=== PATIENT | male | born 1995 | race Caucasian/White ===

== ENCOUNTER 2021-10-13 21:15 | Emergency (ER) | payer OTHER, SELFPAY ==
--- NOTE | ~2021-10-13 | CT_ITS ---
EXAMINATION: CT BRAIN W/O DATE: 10/13/2021 22:29 INDICATION: Struck in head with elbow playing football TECHNIQUE: Computed tomography (CT) of the head was performed without intravenous contrast. The dose- length product was 605.33 mGy-cm. Automated exposure control and iterative reconstruction technique w ere employed. COMPARISON: No prior studies for comparison. FINDINGS: Normal brain parenchymal volume for age. Normal bone-white differentiation. No acute intrac ranial hemorrhage, infarction, mass or mass effect. No ventriculomegaly or midline shift. Midline sagittal images demonstrate a normal corpus callosum, c raniovertebral junction and sella turcica. Basilar cisterns are patent. Paranasal sinuses and mastoids are pneumatized. No depressed skull fractures. IMPRESSION: 1. No acute intracranial abnormality. Reviewed, dictated and finalized at location A.
--- NOTE | ~2021-10-13 | XR_ITS ---
XR knee RT min 4V 10/13/2021 22:25 INDICATION: Right knee pain PROCEDURE: 4 views right knee COMPARISON: No prior studies for comparison. FINDINGS: Fracture, dislocation or subluxation is not identified. No significant joint effusion. The soft tissues appear within normal limits. No foreign bodies are identified. IMPRESSION: 1: NO ACUTE BONE OR JOINT ABNORMALITY IDENTIFIED. Reviewed, dictated and finalized at location A.
[2021-10-13 21:20] VITALS: BP 151/81; PULSE 45; RESP 18; TEMP 36.2; O2SAT 99
--- NOTE | 2021-10-13 22:18 | ED.LOWEXIN ---
HPI - Extremity Injury (Lower) General Chief Complaint: Extremity Injury, Lower Stated Complaint: right knee pain, head trauma Time Seen by Provider: 10/13/21 21:37 Source: patient Mode of arrival: ambulatory Limitations: no limitations History of Present Illness HPI Narrative: This is a 26 year old male that presents to the ER after an injury today at flag football for evaluation. Reports he was hit by another player on the outside of his right knee. Reports he has had swelling and pain to the area. Pain is especially with ambulation. Also reports he was hit in the head. He did not lose consciousness. Although family member reports he was confused for about 10 minutes. Patient denies vision changes, vomiting, numbness, or weakness. Related Data Home Medications Medication Instructions Recorded Confirmed No Home Medications 10/13/21 10/13/21 Allergies Allergy/AdvReac Type Severity Reaction Status Date / Time No Known Allergies Allergy Verified 10/13/21 21:21 Review of Systems Review of Systems: CONSTITUTIONAL: Denies fever EYES: Denies visual changes GASTROINTESTINAL: Denies vomiting MUSCULOSKELETAL: Reports joint pain, and myalgia. NEUROLOGIC: Denies numbness, or weakness. All systems reviewed & are unremarkable except as noted in HPI and below PMFSH Past Medical History Medical History (Updated 10/13/21 @ 23:37 by Yary Cordoba PA-C) No active medical problems Social History Social History (Updated 10/13/21 @ 22:21 by Yary Cordoba PA-C) Smoking status: Never smoker Exam Narrative: GENERAL: Well-appearing, well-nourished, and in no acute distress. HEAD: Normocephalic, atraumatic. EYES: PERRLA and EOMI. ENT: Nares clear, no rhinorrhea or epistaxis. Mucous membranes moist. Oropharynx without tonsillar hypertrophy exudate or other lesions. Bilateral TMs pearly bone non-bulging NECK: Supple. No adenopathy or masses. No midline cervical spine tenderness CHEST: Clear to auscultation. No respiratory distress. No wheezes rales or rhonchi HEART: Regular rate and rhythm. No murmur heard. Normal peripheral pulses. EXTREMITIES: Normal range of motion. No edema or obvious deformity. Normal DP pulse SKIN: Warm, dry, no rash. NEURO: No focal deficits. Alert and oriented x3. Cranial nerves II through XII grossly intact PSYCH: Normal mood and affect Course Vital Signs Vital signs: Vital Signs Temperature 97.2 F L 10/13/21 21:20 Pulse Rate 45 L 10/13/21 21:20 Respiratory Rate 18 10/13/21 21:20 Blood Pressure 151/81 H 10/13/21 21:20 Pulse Oximetry 99 10/13/21 21:20 Oxygen Delivery Room Air 10/13/21 21:20 Temperature 97.2 F L 10/13/21 21:20 Pulse Rate 45 L 10/13/21 21:20 Respiratory Rate 18 10/13/21 21:20 Blood Pressure 151/81 H 10/13/21 21:20 Pulse Oximetry 99 10/13/21 21:20 Oxygen Delivery Room Air 10/13/21 21:20 Procedures Orthopedic Splinting/Casting Injury #1: Splinting/Casting Date: 10/13/21 Splinting/Casting Time: 23:40 Side: right Lower Extremity Injury Location: knee Lower Extremity Immobilizer: Boyd wrap Splint: prefabricated Pre-Formed: other (boyd wrap) Pre-Procedure Neuro Vascular Exam: normal Post-Procedure Neuro Vascular Exam: normal Other Orthopedic Equipment: crutches MDM - Extremity Injury (Lower) MDM Narrative Medical decision making narrative: Patient presents to the emergency department for right knee pain and head injury after playing flag football. Patient's vitals are stable. He is neurologically intact. Right knee x-ray without acute osseous abnormalities. CT scan of the brain without concerning findings. Patient was updated on case findings. Placed in Boyd wrap and given crutches. Instructed to rest, ice and take [id number] pain medication as needed. He will be given orthopedics for follow-up. He was instructed on care of concussion as well. He was giv
[2021-10-13 23:48] VITALS: BP 158/92; PULSE 60; RESP 18; O2SAT 98
== END 2021-10-13 23:50 | disposition home or self-care (01) ==
PROVIDERS: Emergency Provider Emergency Medicine
DX: S83.91XA Sprain of unspecified site of right knee, initial encounter (principal); S09.90XA Unspecified injury of head, initial encounter; W51.XXXA Accidental striking against or bumped into by another person, initial encounter; Y93.62 Activity, american flag or touch football
CPT/HCPCS: 70450; 73564; 99284

== ENCOUNTER 2022-01-20 00:38 | Day surgery (SDC) | payer OTHER, SELFPAY ==
[2022-01-17 14:10] VITALS: BMI 22.1
--- NOTE | 2022-01-17 14:19 | PC.NURSE ---
Report to the Outpatient Waiting Room, entrance under the green pavilion located off [facility], at time 0600 on date 01/20/22. OR Time: 0730. - You and your visitor will be asked to self-screen and do not enter if you have any COVID symptoms. - Only one visitor and NO children visitors are allowed at this time. - The patient visitor is requested to leave or wait in car when not with patient due to restrictions. - A mask is required within the hospital. Patients may have clear liquids (water, carbonated beverages, clear teas, apple juice) until 3 hours prior to surgery with a maximum of 20 ounces. - No food from midnight until time of surgery Take the following medications with a SIP of water the morning of surgery: PAIN PILL (IF NEEDED) Medications to discontinue per physician: N/A Date to take last dose: N/A Please no make-up, nail romanian, hairspray, perfume, deodorant, or body powder the day of surgery. No jewelry (including any body piercings) or valuables the day of surgery, leave them at home. Please take a shower or bath the night before, or the morning of, surgery with an antibacterial soap. Wear comfortable, loose fitting clothing. - Jewelry must be removed prior to entering the operating room. Rings and piercings that are not removed may be cut off. - The hospital will not accept responsibility for valuables. - Please leave all valuables, including medications, at home the day of surgery. If you are going home after surgery, a licensed stake driver must drive you home. - NO public transportation without another adult. - We recommend that an adult stay with you for 24 hours following discharge. - We also recommend that you do not drive, make important decision, drink alcoholic beverages, or take any drugs that were not prescribed by your health care provider for at least 24 hours after your discharge time. Follow any additional instructions given to you from your surgeon. If you or anyone in your household have experienced Covid symptoms in the past week, please notify your surgeon or the nurse liaison at the phone number below for possible testing. Telephone instructions given to PT - MAKI DUNHAM and asked if any additional questions and then verbalized understanding. Patient advised to call surgeon office or pre surgery nurse liaison [phone] if any additional questions.
--- NOTE | 2022-01-19 09:35 | P.PNAN_ITS ---
Anes - Initial Pre Proc Eval Procedure: Operation Date: 01/20/22 07:30 Proposed Procedures p Open Reduction Internal Fixation with Syndesmotic Stabilization Right Ankle - Piero Leyva MD Date/Time: 01/19/22 09:35 Surgeon: Piero Leyva MD Pre Op Diagnosis: Right Ankle Fx Patient Data Age: 26 Gender: M Height: 1.8 m Weight: 72 kg Allergies Allergy/AdvReac Type Severity Reaction Status Date / Time No Known Allergies Allergy Verified 01/20/22 06:30 Home Medications Medication Instructions Recorded Confirmed Type hydrocodone 5 mg-acetaminophen 325 1 tablet PO Q4-6H PRN Pain 01/17/22 01/20/22 History mg tablet ibuprofen 200 mg tablet 400 mg PO Q6H PRN Pain 01/17/22 01/20/22 History Patient hx anesthesia problems: none Family hx anesthesia problems: none Results Review: All pre-operative results and documents have been reviewed as part of the pre- operative evaluation. 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 Informed Consent: The patient's anesthetic plan and its attendant risks and benefits were discussed with the patient/family/POA. Questions were solicited and answers provided to the satisfaction of the patient/family/POA.
--- NOTE | 2022-01-19 09:36 | WPDANESPNB ---
Anes - Peripheral Nerve Block Date/Time: 01/19/22 09:36 I have discussed with the patient/family/POA the placement of a peripheral nerve block for post-operative pain management, including associated risks, benefits, complications, and side effects. Alternative methods of post-operative analgesia were detailed. Questions were solicited and answers provided to the satisfaction of the patient/family/POA. Time-Out: A pre-procedural Time-Out was completed immediately before starting the procedure and confirmed: Patient Identification, Site, Procedure, Patient Position and the Availability of Requisite Equipment. Clinical Indications: Acute post-operative pain management requested by the operative surgeon. Nerve Block Insertion Note Anes-nerve block: posterior fossa sciatic (20cc) right and adductor canal (10cc) right Patient position: supine Skin prep: chlorhexidine Needle: 22 gauge, stimulating, insulated echogenic needle. Needle length: 80 mm Technique: ultrasound (in plane) Injectate: bupivacaine 0.25% with epi 5 mcg/ml Observations: tolerated well Complications: none Procedure start time:: 725 Procedure end time:: 730
[2022-01-20] VITALS (8 sets, daily range): BP systolic 122–137; BP diastolic 54–78; PULSE 41–59; RESP 8–20; TEMP 36.4–36.9; O2SAT 98–100
--- NOTE | ~2022-01-20 | XR_ITS ---
EXAMINATION: XR surgery orthopedic DATE: 01/20/2022 08:58 INDICATION: ORIF right ankle fracture TECHNIQUE: 3 fluoroscopic images of the right ankle were obtained during procedure performed by Dr. Rubio bridges. Radiologist was not present for the imaging or procedure. The amount of fluoroscopy time used du ring this procedure was 0.7 minutes. COMPARISON: 01/14/2022 FINDINGS: Interval reduction of the oblique distal diaphyseal fracture of the right fibula with an interfragmen tary screw and lateral plate and screws. There is also been reduction of the previously subluxed tibi otalar joint with syndesmotic wire fixation extending across the metaphyseal regions of the distal ti fritz and fibula with metallic buttons along the tibial side of the lucent tunnel. Alignment appears es sentially anatomic with a congruent ankle mortise and normal ankle joint space. No other fractures id entified. IMPRESSION: 1. Essentially anatomic alignment post open reduction internal fixation of a distal right fibular fra cture with associated syndesmotic injury and tibiotalar subluxation. Reviewed, dictated and finalized at location A. IMPRESSION: 1. Essentially anatomic alignment post open reduction internal fixation of a di stal right fibular fracture with associated syndesmotic injury and tibiotalar s ubluxation.
[2022-01-20] MEDS: ACETAMINOPHEN 500 MG TABLET 1000 MG PO (06:35)
[2022-01-20] MEDS: LACTATED RINGERS 1,000 ML 30 ML IV CONT ×2 (06:40→09:09)
[2022-01-20] MEDS: KETOROLAC 15 MG/ML VIAL (*BKC) IV PUSH (06:42)
--- NOTE | 2022-01-20 07:15 | WPDHPUPDATE1 ---
History and Physical Update Update Date/Time: 01/20/22 07:15 History and Physical has been reviewed, including an updated exam of the patient. There are NO changes in the patient's condition. Risks, benefits, and alternatives have been discussed and questions answered. Patient agrees to proceed with procedure.
--- NOTE | 2022-01-20 07:36 | SUR.PREOP ---
0710-DISCUSSED SHAVE AND FX STABILITY W/DR. GROVER-NO PREP TO BE DONE IN PRE OP AREA.
[2022-01-20] MEDS: ceFAZolin 2 GM/D5W 50 ML 2 GM/50 ML BAG IVPB (07:38)
--- NOTE | 2022-01-20 09:29 | W.PM.PROC2 ---
Procedure Note - Detailed Date of Procedure 01/20/22 Pre-op Diagnosis Right fibular shaft fracture with syndesmotic disruption Post-op Diagnosis Same Procedure Performed ORIF right fibular shaft with open syndesmotic stabilization using fluoroscopic assistance. Surgeon Piero Leyva MD [employer] Doron Dahl Anesthesia General and Regional Description of Procedure The patient was identified and proper side identified. In the preoperative holding area anesthesia team performed a right lower extremity block. He was then taken to the operating room transferred to the OR table placing him supine taking care to pad his torso extremities. After general anesthetic induction and intubation a nonsterile tourniquet was placed high on the right thigh. Right lower extremity was prepped and draped in usual sterile fashion. A longitudinal incision was made centered over the distal fibular fracture. Subcutaneous tissue sharply dissected down to the fracture site. This was cleared of debris and reduced and then secured with an interfragmentary screw. After this a 1/3 semi tubular locking plate from the [employer] set was contoured to fit the fibula and then secured to the fibula with a combination of 3.5 millimeter locking and nonlocking screws. This gave a anatomic reduction of the fibula. A small incision was made over the medial malleolus which allowed use of a reduction forceps holding the syndesmosis reduced well the tight rope was passed through the plate across the fibula and tibia and then the button was left in the medial cortex of the distal tibia. This gave a very nice reduction of the syndesmosis while taking care not to overtighten it. The talus was positioned anatomically in the mortise on AP, lateral and mortise views. The wounds were irrigated with sterile saline. Lateral wound was reapproximated with 3-0 Quill and david. Medial wound with david. Sterile dressing was applied and tourniquet was released. An exceptionally well-padded stirrup type ankle splint was applied the ankle in a neutral position. Estimated blood loss was negligible. He received perioperative antibiotics per Estimated Blood Loss -20.0 Tourniquet Time 58 Drains No Packing No Pathology None sent Condition Stable Disposition PACU
== END 2022-01-20 10:48 | disposition home or self-care (01) ==
PROVIDERS: Visit Provider Orthopaedic Surgery
PROC: (CPT 27829; principal; 2022-01-20 07:30)
DX: S82.401A Unspecified fracture of shaft of right fibula, initial encounter for closed fracture (principal); S93.431A Sprain of tibiofibular ligament of right ankle, initial encounter; G89.18 Other acute postprocedural pain; Z87.891 Personal history of nicotine dependence; W51.XXXA Accidental striking against or bumped into by another person, initial encounter; Y93.64 Activity, baseball
CPT/HCPCS: 27829; 27784; 64447; 64445; 99199; A9270; C1713; J0690; J1100; J1170; J1200; J1885; J2250; J2405; J2704; J3010; J7120

== ENCOUNTER 2022-04-17 07:30 | Outpatient (RCR) | payer OTHER, SELFPAY ==
--- NOTE | 2022-04-12 09:19 | PTOPEVAL1 ---
Assessment and note entered by Sly Michel, PT Evaluation Information Assessment Status Evaluation Diagnosis R ankle ORIF Onset 01/20/22 Subjective Information Patient reports he doing well out of the walking boot, still icing and elevating the R ankle. He will be returning back to work on light duty. Only issue he has is that he has pain with eversion with resistance. Reported Pain Level Pain Score 0: Self Report Additional Pain Score Comments Only pain he feels is with eversion with resistance. Assessment PT Clinical Summary Hamilton is a 27 year old male coming into the clinic post op a R ankle ORIF. 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 He has decreased eversion range of motion and strength, but otherwise is within functional range for everything else. Slight gait imbalance, no pain to report of and slight increase in circumference of the R ankle compared to the L ankle. Patient should benefit from working with skilled physical therapy to improve range of motion and strength which should help improve his gait pattern and allow for a full return to work. Plan of Care Interventions Electrical Stimulation,Gait Training,Hot Pack/Cold Pack,Manual Therapy,Neuro Re-education,Patient/ Caregiver Education,Therapeutic Activities, Therapeutic Exercise,Ultrasound PT Services Indicated Yes Treatment Frequency and 2x/wk for 4 weeks Duration These treatments will address the objective and functional deficits as defined above. The patient will be advanced safely and appropriately in order for the patient to progress towards his/her prior level of function. Additional exercises will be introduced and as well as a comprehensive home exercise program upon discharge, if needed, ?to ensure carryover of functional gains achieved in the clinic. This treatment plan has been reviewed and agreement upon by the patient.
--- NOTE | 2022-04-17 08:54 | PTOPPROGNS ---
Assessment and note entered by Sly Michel, PT Evaluation Information Assessment Status Progress Diagnosis R ankle ORIF Onset 01/20/22 Subjective Information Patient reports he has returned to work on light duty and has been doing his range of motion exercises without any increase in pain or soreness with either activity. Is seeing Dr. Leyva on Sunday and is hopeful to be released to full duty Assessment PT Clinical Summary Hamilton has come for two visits and progressed well increasing his Eversion from 5 degrees to 27 degrees and inversion from 20 degrees to 38 degrees. Strength is there and working on improving single limb stance time for better ankle stabilization. Patient has no reports of pain and that he is still icing and elevating the R ankle. Will continue to work on range of motion and strengthening progressing to dynamic balance as he continues to meet his goals. Plan of Care Interventions Electrical Stimulation,Gait Training,Manual Therapy,Neuro Re-education,Patient/Caregiver Education,Therapeutic Activities,Therapeutic Exercise,Ultrasound PT Services Indicated Yes Treatment Frequency and 2x/wk for 4 weeks Duration These treatments will address the objective and functional deficits as defined above. The patient will be advanced safely and appropriately in order for the patient to progress towards his/her prior level of function. Additional exercises will be introduced and as well as a comprehensive home exercise program upon discharge, if needed, ?to ensure carryover of functional gains achieved in the clinic. This treatment plan has been reviewed and agreement upon by the patient.
--- NOTE | 2022-04-26 08:43 | PCPTNOTE ---
Patient did not show up for scheduled appointment this date. Called patient to leave voicemail, but mailbox full
--- NOTE | 2022-04-28 11:23 | PCPTNOTE ---
Patient called & cancelled scheduled appointment this date due to not feeling well.
--- NOTE | 2022-05-02 16:05 | PCPTNOTE ---
Patient did not show up for scheduled appointment this date. Called and was unable to leave a message, mailbox was full.
--- NOTE | 2022-05-03 08:42 | PTOPDC ---
Assessment and note entered by Sly Michel, PT Evaluation Information Assessment Status Discharge - Pt Not Presen Diagnosis R ankle ORIF Onset 01/20/22 Subjective Information Patient reports he has returned to work on light duty and has been doing his range of motion exercises without any increase in pain or soreness with either activity. Is seeing Dr. Leyva on Sunday and is hopeful to be released to full duty Assessment PT Clinical Summary Hamilton is a 27 year old male coming to the clinic for aftercare of a R ankle ORIF. After his visit on he was seen by Dr. Leyva and returned to full duty. After that he missed his next three scheduled appointments for physical therapy. Patient was called but voice mailbox full unable to leave message. Physical therapy called Dr. Leyva' s office to see if the patient had been released to full duty and he had so under the assumption he has also been released from physical therapy.
== END 2022-05-04 07:34 | disposition home or self-care (01) ==
LOC: ANHPT 07:30
PROVIDERS: Visit Provider Orthopaedic Surgery
DX: Z47.89 Encounter for other orthopedic aftercare (principal); S82.401D Unspecified fracture of shaft of right fibula, subsequent encounter for closed fracture with routine healing; S93.431D Sprain of tibiofibular ligament of right ankle, subsequent encounter
CPT/HCPCS: 97110; 97161; 99199